=== PATIENT | male | born 1950 | race Caucasian/White ===

== ENCOUNTER 2017-03-17 03:44 | Emergency (ER) | payer OTHER ==
[~2017-03-17] VITALS: Ht 175.3 cm; Wt 119.1 kg
[2017-03-17 04:55] LABS: ADD MIUA? YES; COLOR RED ((YELLOW)); LEUKOCYTES TRACE; NITRITE NEGATIVE; SPECIFIC GRAVITY 1.025 (1.000-1.030)
[2017-03-17 04:56] LABS: BILIRUBIN NEGATIVE; BLOOD LARGE; GLUCOSE (STRIP) NEGATIVE; KETONES NEGATIVE; PH, URINE 6.5 (5-8); PROTEIN (STRIP) 300; UROBILINOGEN 0.2 MG/DL (0.2-1.0)
[2017-03-17 04:57] LABS: RED BLOOD CELLS TNTC /HPF (0-5); UCUL ADDED? YES
[2017-03-17] MEDS ORDERED: CIPRO500 MG PO (05:06)
[2017-03-17] MEDS ORDERED: KEFLEX500 MG PO (05:34)
[2017-03-17 06:09] VITALS: BP 139/75
== END 2017-03-17 06:10 ==
LOC: EME 03:44
PROVIDERS: Emergency Medicine
DX: R33.8 Other retention of urine (principal); R31.9 Hematuria, unspecified; N39.0 Urinary tract infection, site not specified; R00.0 Tachycardia, unspecified; Z87.440 Personal history of urinary (tract) infections
CPT/HCPCS: 81003; 87086; 99281; 99284